=== PATIENT | female | born 1990 | race Caucasian/White ===

== ENCOUNTER 2017-02-09 07:09 | Emergency (ER) | payer OTHER ==
[2017-02-09 07:47] LABS: microscopic required? NO
[2017-02-09 08:33] LABS: UA SPECIFIC GRAVITY >=1.030 (1.005-1.035); urine erythrocyte NEGATIVE (NEGATIVE)
== END 2017-02-09 09:55 | disposition home or self-care (01) ==
LOC: ED 07:09
PROVIDERS: Emergency Medicine
DX: R10.31 Right lower quadrant pain (principal); R10.32 Left lower quadrant pain; R10.2 Pelvic and perineal pain
CPT/HCPCS: J1885; Q0092

== ENCOUNTER 2018-06-28 14:30 | Emergency (ER) | payer OTHER ==
[~2018-06-28] VITALS: Ht 167.6 cm; Wt 120.2 kg
[2018-06-28 14:33] VITALS: Ht 167.6 cm; Wt 120.2 kg
[2018-06-28 17:18] VITALS: BP 127/63
== END 2018-06-28 17:18 | disposition other institution (70) ==
LOC: ED 14:30
DX: O26.892 Other specified pregnancy related conditions, second trimester (principal); G43.909 Migraine, unspecified, not intractable, without status migrainosus; R10.9 Unspecified abdominal pain; Z3A.16 16 weeks gestation of pregnancy; N83.209 Unspecified ovarian cyst, unspecified side

== ENCOUNTER 2018-06-28 14:30 | Emergency (ER) | payer OTHER | END 2018-06-28 17:18 | disposition other institution (70) | LOC: ED 14:30 | DX: Z02.89 Encounter for other administrative examinations (principal) ==